=== PATIENT | male | born 1980 | race Caucasian/White ===

== ENCOUNTER 2022-02-02 09:51 | Outpatient (CLI) | payer BC ==
[2022-02-02 11:56] LABS: Bilirubin Neg (Negative); Blood, Urine 10 (Negative); Clarity Clear (Clear); Glucose, Urine (Dipstick) Normal (Negative); Ketone, Urine Negative (Negative); Leukocyte Negative (Negative); Nitrite Negative (Negative); Protein, Urine (Dipstick) Negative (Neg-Trace); Urobilinogen Normal mg/dL (Less than 2)
[2022-02-02 12:00] LABS: Hemoglobin 15.3 g/dL (13.5-17.5); Mean Corpuscular HGB CONC 32.7 g/dL (32.0-36.0); Mean Corpuscular Hemoglobin 28.2 pg (27.0-33.0); Mean Corpuscular Volume 86.2 fl (81.2-95.1); Mean Platelet Volume 12.2 fl (7.4-10.4); Platelet Count 212 10x3/uL (150-450); RBC Distribution Width 12.8 % (11.5-14.5); Red Blood Cell (RBC) Count 5.43 10x6/uL (4.32-5.72); White Blood Cell (WBC) Count 7.5 10x3/uL (3.5-10.5)
[2022-02-02 12:07] LABS: Anion Gap 13 mmol/L (10-20); BUN (Urea Nitrogen) 12 mg/dL (8.9-20.6); Calc. Creatinine Clearance 0 mL/min (70-130); Calcium 9.6 mg/dL (7.8-10.44); Carbon Dioxide 28 mmol/L (22-29); Chloride 102 mmol/L (98-107); Glucose 80 mg/dL (70-105); PTT 30.5 sec (22.0-33.0); Potassium 4.4 mmol/L (3.5-5.1); Prothrombin Time 10.7 sec (9.5-12.1); Sodium 139 mmol/L (136-145)
[2022-02-02 12:24] LABS: RBC/HPF 0-3 HPF (0-3)
[2022-02-02 19:25] LABS: SARS-CoV-2 PCR by NAA Not Detected (NotDetected)
== END 2022-02-02 09:52 | disposition home or self-care (01) ==
LOC: LABBT 09:51
PROVIDERS: ATTEND Urology
DX: Z01.818 Encounter for other preprocedural examination (principal); N48.1 Balanitis; N48.89 Other specified disorders of penis; Z20.822 Contact with and (suspected) exposure to COVID-19
CPT/HCPCS: 80048; 81001; 85027; 85610; 85730; 87086; 93005; 93010; U0003; U0005

== ENCOUNTER 2023-05-16 07:03 | Day surgery (SDC) | payer BC ==
[2023-05-14 08:14] VITALS: BMI 32.1
[2023-05-16] MEDS ORDERED: PROPOFOL 20 ML ONE (07:40)
[2023-05-16] MEDS ORDERED: Bupivacaine PF 0.5% 30 ML VIAL ONE (07:40)
[2023-05-16] MEDS ORDERED: Lidocaine 2% PF 5 ML VIAL ONE (07:40)
[2023-05-16] MEDS ORDERED: Sodium Chloride 0.9% 100 ML ONE (08:26)
[2023-05-16] MEDS ORDERED: CEFAZOLIN 2 GM VIAL ONE (08:26)
[2023-05-16] MEDS ORDERED: fentaNYL 50 mcg/mL 1 mL Vial ONE ×2 (09:17→10:40)
[2023-05-16] MEDS ORDERED: Midazolam HCl 2 mg/2 ml Vial ONE (09:18)
[2023-05-16] MEDS ORDERED: Ondansetron PF 4 MG/2 ML Vial ONE (09:22)
[2023-05-16] MEDS ORDERED: Lidocaine 1% PF 5 ML VIAL ONE (09:22)
[2023-05-16] MEDS ORDERED: PROPOFOL 200 MG/20 ML VIAL ONE (09:22)
[2023-05-16] MEDS ORDERED: Dexamethasone 20 MG/5 ML VIAL ONE (09:22)
[2023-05-16] MEDS ORDERED: HYDROcodone/Acetaminophen 5/325 mg Tablet ONE (11:31)
== END 2023-05-16 12:10 | disposition home or self-care (01) ==
LOC: SDC 07:03
PROVIDERS: ATTEND Orthopaedic Surgery
PROC: 0SBC4ZZ Excision of Right Knee Joint, Percutaneous Endoscopic Approach (ICD-10-PCS; principal; 2023-05-16)
DX: S83.242A Other tear of medial meniscus, current injury, left knee, initial encounter (principal); F17.200 Nicotine dependence, unspecified, uncomplicated; X58.XXXA Exposure to other specified factors, initial encounter
CPT/HCPCS: J1100; J2001; J2250; J2405; J2704; J3010; J3490; S0020